=== PATIENT | male | born 1955 | race Caucasian/White ===

== ENCOUNTER 2021-08-22 15:02 | Emergency (ER) | payer MEDICARE, BC, SELFPAY ==
[2021-08-22 15:03] VITALS: BP 126/62; PULSE 78; RESP 16; TEMP 37.6; O2SAT 94; BMI 25.7
--- NOTE | 2021-08-22 15:29 | RAD_ITS ---
STUDY: X-RAY CHEST REASON FOR EXAM: Male, 66 years old. SOB TECHNIQUE: Single AP portable view of the chest. COMPARISON: Comparison is made with prior study dated 04/08/2017. FINDINGS: Focal left lower lobe infiltrate. There is no demonstrated pleural abnormality. Normal size heart. Normal mediastinum and tiffanie. Normal visualized pulmonary arteries. Normal visualized aortic arch and descending thoracic aorta. Normal visualized thoracic spine. Prior rotator cuff surgery of the right shoulder. There is no demonstrated abnormality of the visualized soft tissue structures of the upper abdomen. RAD/Chest 1 View (Portable) IMPRESSION: Left lower lobe infiltrate. Electronically Signed: Geraldo Whatley MD at 15:46 EDT , Service support ,
--- NOTE | 2021-08-22 15:29 | EKG12_ITS ---
Test Reason : SOB Blood Pressure : / mmHG Vent. Rate : 060 BPM Atrial Rate : 060 BPM P-R Int : 168 ms QRS Dur : 080 ms QT Int : 358 ms P-R-T Axes : 024 019 007 degrees QTc Int : 358 ms Poor data quality, interpretation may be adversely affected Normal sinus rhythm Septal infarct , age undetermined Abnormal ECG Confirmed by SELAM FUNG, ABRAHAM ([id number]), metropolitan editor OMERO FARIAS ([id number]) on 08/26/2021 9:23:02 AM Referred By: JESSENIA Confirmed By:ABRAHAM DOSS MD
[2021-08-22 16:20] VITALS: O2SAT 97
[2021-08-22 16:22] VITALS: RESP 28; O2SAT 97
--- NOTE | 2021-08-22 16:23 | CT_ITS ---
STUDY: CTA CHEST REASON FOR EXAM: Male, 66 years old. Substernal chest pain and shortness of breath RADIATION DOSAGE (If Supplied By Facility): CTDIvol = ( 13.83 ) mGy, DLP = ( 382.50 ) mGycm TECHNIQUE: The examination was performed with the intravenous administration of . Post-processing of the angiographic images was performed, with multiplanar reformation and 3D reconstruction. Individualized dose optimization techniques were used for this CT. COMPARISON: None. FINDINGS: Normal enhancement of the main pulmonary artery and right and left pulmonary arteries. Normal enhancement of the bilateral peripheral pulmonary arteries. There is no demonstrated pulmonary embolism. Normal thoracic aorta and visualized great vessels. There is no demonstrated aortic dissection. Normal heart and pericardium. Subcentimeter mediastinal and perihilar lymph nodes. There is peribronchial thickening. The lungs are well expanded. Diffuse interstitial and airspace opacifications in both lung renae, most notably the left lower lobe. Findings suggest Covid pneumonia, pneumonitis or CHF. Normal pleura. Normal chest wall structures. Normal osseous structures. Normal visualized upper abdomen. CT/CTA Chest W/WO Contrast IMPRESSION: No demonstrated PE, or thoracic aortic aneurysm or dissection Diffuse interstitial and airspace opacifications in both lung renae particularly the left lower lobe, differential as described above. Follow-up recommended to assure resolution Subcentimeter in short axis dimension mediastinal and perihilar lymph nodes Electronically Signed: Gilmar Tobar MD at 18:23 EDT , Service support ,
[2021-08-22 16:44] LABS: Absolute Lymphocyte Count 1.24 X10^3/uL (0.83-4.51); Absolute Neutrophil Count 1.7 X10^3/uL (2.0-7.7); Basophil# 0.01 X10^3/uL; Basophil% 0.3 % (0-1); Hematocrit 48.5 % (40-54); Hemoglobin 16.3 g/dL (13.0-16.5); Lymphocyte # 1.24 X10^3/ul (0.83-4.51); Lymphocyte % 37.7 % (19-41); Mean Corp Hgb Conc 33.6 g/dL (32-36); Mean Corpuscular Volume 89.2 fL (80-94); Mean Platelet Vol. 11.2 fl (6.2-12.0); Monocyte# 0.34 X10^3/uL; Monocyte% 10.3 % (0-10); NRBC Flagged by Analyzer 0 % (0-5); Neutrophil # 1.69 X10^3/uL (2.7-7.7); Neutrophil % 51.4 % (47-70); Platelet Count 112 K/mm3 (150-450); RBC Distribution Width CV 12.9 % (11.6-14.6); RBC Distribution Width SD 42.4 fl (35.1-43.9); Red Blood Count 5.44 M/mm3 (4.6-6.2); White Blood Count 3.3 K/mm3 (4.4-11.0)
[2021-08-22 16:59] LABS: Lactic Acid 1.1 mmol/L (0.4-1.9)
[2021-08-22 17:05] LABS: ALB/GLOB Ratio 0.9 RATIO (0.9-2.4); AST(SGOT) 24 U/L (15-37); Alanine Aminotransfer ALT/SGPT 23 U/L (16-61); Albumin, Serum 3.2 g/dL (3.2-5.0); Alkaline Phosphatase 75 U/L (45-117); Anion Gap 7 (5-15); BUN 15 mg/dL (7-18); BUN/Creat Ratio 11.3 RATIO (10-20); Calcium,Total 8.2 mg/dL (8.5-10.1); Chloride 100 mmol/L (98-107); Creatinine, Serum 1.33 mg/dL (0.70-1.30); EST Glomerular Filtration Rate 57 mL/min (>60); Est Glom Filt Rate - Afr Amer 69 mL/min (>60); Estimated Creatinine Clearance 56.62 ml/min; Globulin 3.4 g/dL (2.2-4.2); Glucose 204 mg/dL (74-106); Potassium 3.9 mmol/L (3.5-5.1); Protein, Total 6.6 g/dL (6.4-8.2); Sodium Level 135 mmol/L (136-145); Troponin-I HS 9 pg/mL (3.0-78.0)
[2021-08-22] MEDS: Acetaminophen 500 MG Tablet 1000 MG PO (17:16)
[2021-08-22] MEDS: dexAMETHasone 10 MG/ML Vial IV (17:16)
[2021-08-22] MEDS: 0.9% Normal Saline 1,000 ML 999 ML IV (17:45)
[2021-08-22 18:06] LABS: International Normalized Ratio 1.1; Prothrombin Time (Protime)PT. 13.3 SECONDS (11.7-14.9)
[2021-08-22 18:07] LABS: Partial Thromboplast Time 30.9 Seconds (24.1-36.2)
[2021-08-22 18:41] LABS: Bedside Glucose 189 mg/dL (70-110)
[2021-08-22 18:51] VITALS: BP 124/54; PULSE 56; RESP 25; O2SAT 93
[2021-08-22 20:13] VITALS: BP 117/79; RESP 64; TEMP 37; O2SAT 96
[2021-08-22 20:14] VITALS: O2SAT 96
--- NOTE | 2021-08-22 20:30 | EX.ED.DYSGE1 ---
HPI History of Present Illness Chief Complaint: Shortness of Breath Narrative Narrative: Patient is 66-year-old male with type 1 diabetes who states over the last 5 to 7 days he has had increased shortness of breath with fatigue and cough. He states that he went and had an outpatient Covid test 2 days ago and it was positive. He reports that today his oxygen level was reading in the mid 80s at home and with concern for worsening symptoms was brought in for evaluation [facility] Medical History COVID-19 Home Medications atorvastatin 40 mg PO QHS 04/08/17 [History Last Taken Unknown] enalapril maleate 5 mg PO DAILY 04/08/17 [History Last Taken Unknown] insulin lispro [Humalog] 30 units SQ DAILY 04/08/17 [History Last Taken Unknown] albuterol sulfate [Ventolin HFA] 1 - 2 puff INHALATION Q4H PRN PRN #1 device 08/22/21 [Rx Last Taken Unknown] dexamethasone [Decadron] 6 mg PO DAILY 10 Days #10 tab 08/22/21 [Rx Last Taken Unknown] promethazine-codeine 5 ml PO Q6H PRN 7 Days #140 ml 08/22/21 [Rx Last Taken Unknown] Allergy/AdvReac Type Severity Reaction Status Date / Time No Known Allergies Allergy Verified 04/08/17 14:04 Social History Smoking Status: Former smoker ROS [facility] ED Constitutional Constitutional ED: Reports chills and fever(s) ENT ENT ED: Reports sore throat Cardiovascular Cardiovascular: Denies chest pain Respiratory/Chest Respiratory/Chest: Reports cough and dyspnea Gastrointestinal Gastrointestinal: Reports nausea; Denies abdominal pain, diarrhea or vomiting Genitourinary Genitourinary ED: Denies dysuria Musculoskeletal Musculoskeletal: Reports myalgias Integumentary Denies rash Neurologic Neurologic: Denies headache(s) Hematologic/Lymphatic Hematologic/Lymphatic: Denies easy bleeding or easy bruising EXAM Physical Exam Const Vital Signs: 08/22/21 15:03 08/22/21 16:20 08/22/21 16:22 Temperature 99.6 F H Temperature Source Temporal Pulse Rate 78 Respiratory Rate 16 28 H Blood Pressure 126/62 H Blood Pressure Mean 83 Pulse Ox 94 97 97 Oxygen Delivery Method Room Air Room Air Room Air 08/22/21 18:51 08/22/21 20:13 Temperature 98.6 F Temperature Source Temporal Pulse Rate 56 L Respiratory Rate 25 H 64 H Blood Pressure 124/54 H 117/79 Blood Pressure Mean 77 91 Pulse Ox 93 96 Oxygen Delivery Method Room Air Room Air Positive well nourished and well developed General Appearance ED: well developed HEENT Reports dry mucous membranes HEENT Narrative: No tongue or lip swelling no airway edema or compromise Mouth ED: Yes dry mucous membranes Mouth: dry mucous membranes Eyes PERRL and EOMs intact bilaterally Neck supple and no JVD Neck Narrative: Positive anterior cervical lymphadenopathy Chest Wall palpation of chest normal Resp Resp Narrative: Breath sounds are diminished throughout with diffuse expiratory wheeze with slight tachypnea noted Cardio regular rate and regular rhythm GI normal to inspection, nondistended, normoactive bowel sounds, non-tender, non-distended and no masses Auscultation: normoactive bowel sounds Palpation: soft Extremity normal to inspection Extremity Narrative: No asymmetric edema no pitting edema negative Homans' sign bilaterally Neuro oriented x3 and CN's II-XII intact bilaterally Sensorium / Orientation: alert Motor Exam: strength 5/5 throughout Psych mental status grossly normal Skin no rashes or lesions noted MDM MDM MDM Narrative Medical decision making narrative: Patient presented to the ER with diminished breath sounds with wheeze as well as low-grade fever consistent with his recent Covid diagnosis. He had mild increased work of breathing but was satting in the mid 90s on room air. With his recent Covid diagnosis as well as travel from [place] I did elect to perform a CTA. CT revealed no PE or dissection but did show Covid pneumonia. Blood work revealed no signs of heart damage or other clinically significant change. Patient was ambulated in the ER and his pulse ox dropped no lower than 92%. Therefore at this time he does not have cardiac damage or need for supplemental oxygen and can be discharged and he will receive monoclonal antibody treatment which has been already set up by his family doctor. Lab Data Attestation: I reviewed the patient's lab results. Labs: Laboratory Results - last 24 hr 08/22/21 08/22/21 08/22/21 16:20 16:20 16:20 WBC 3.3 L RBC 5.44 Hgb 16.3 Hct 48.5 MCV 89.2 MCH 30.0 MCHC 33.6 RDW Std Deviation 42.4 RDW Coeff of Ibeth 12.9 Plt Count 112 L MPV 11.2 Immature Gran % (Auto) 0.300 Neut % (Auto) 51.4 Lymph % (Auto) 37.7 [place] % (Auto) 10.3 H Eos % (Auto) 0.0 Baso % (Auto) 0.3 Absolute Neuts (auto) 1.7 L Absolute Lymphs (auto) 1.24 Nucleated RBC % 0 PT INR APTT Sodium 135 L Potassium 3.9 Chloride 100 Carbon Dioxide 28.0 Anion Gap 7 BUN 15 Creatinine 1.33 H Estim Creat Clear Calc 56.62 Est GFR (MDRD) Af Amer 69 Est GFR (MDRD) Non-Af 57 L BUN/Creatinine Ratio 11.3 Glucose 204 H Lactic Acid 1.1 Calcium 8.2 L Magnesium 2.0 Total Bilirubin 0.80 AST 24 ALT 23 Alkaline Phosphatase 75 Troponin I High Sens 9 Total Protein 6.6 Albumin 3.2 Globulin 3.4 Albumin/Globulin Ratio 0.9 Acetone Level POC Glucose 08/22/21 08/22/21 08/22/21 16:20 17:43 18:35 WBC RBC Hgb Hct MCV MCH MCHC RDW Std Deviation RDW Coeff of Ibeth Plt Count MPV Immature Gran % (Auto) Neut % (Auto) Lymph % (Auto) [place] % (Auto) Eos % (Auto) Baso % (Auto) Absolute Neuts (auto) Absolute Lymphs (auto) Nucleated RBC % PT 13.3 INR 1.1 APTT 30.9 Sodium Potassium Chloride Carbon Dioxide Anion Gap BUN Creatinine Estim Creat Clear Calc Est GFR (MDRD) Af Amer Est GFR (MDRD) Non-Af BUN/Creatinine Ratio Glucose Lactic Acid Calcium Magnesium Total Bilirubin AST ALT Alkaline Phosphatase Troponin I High Sens Total Protein Albumin Globulin Albumin/Globulin Ratio Acetone Level NEGATIVE POC Glucose 189 H Radiography Diagnostic Testing: Clinical Impression(s) from Imaging Studies Chest X-Ray 08/22/21 15:29 IMPRESSION: Left lower lobe infiltrate. Electronically Signed: Geraldo Whatley MD at 15:46 EDT , Service support , Chest CTA 08/22/21 16:23 IMPRESSION: No demonstrated PE, or thoracic aortic aneurysm or dissection Diffuse interstitial and airspace opacifications in both lung renae particularly the left lower lobe, differential as described above. Follow-up recommended to assure resolution Subcentimeter in short axis dimension mediastinal and perihilar lymph nodes Electronically Signed: Gilmar Tobar MD at 18:23 EDT , Service support , Discharge Plan Triage Chief Complaint: Shortness of Breath ED Provider: Mark Aviles Dx/Rx/DC Orders Clinical Impression: Pneumonia due to 2019 novel coronavirus Instructions: Coronavirus Disease 2019 (COVID-19): Caring for Yourself or Others Prescriptions: New dexamethasone [Decadron] 6 mg tablet 6 mg PO DAILY 10 Days Qty: 10 RF: 0 albuterol sulfate [Ventolin HFA] 90 mcg/actuation HFA aerosol inhaler 1 - 2 puff inhalation Q4H PRN PRN (Reason: Wheezing) Qty: 1 RF: 0 promethazine-codeine 6.25-10 mg/5 mL syrup 5 ml PO Q6H PRN (Reason: cough) 7 Days Qty: 140 RF: 0 No Action atorvastatin 40 MG tablet 40 mg PO QHS RF: 0 enalapril maleate 5 MG tablet 5 mg PO DAILY RF: 0 insulin lispro [Humalog U-100 Insulin] 100 UNIT/ML solution 30 units SQ DAILY RF: 0 Primary Care Provider: Johny Latham Referrals: Johny Latham MD [Primary Care Provider] - Disposition Disposition: Home, Self Care Discharge Date/Time: 08/22/21 20:39
== END 2021-08-22 20:39 | disposition home or self-care (01) ==
PROVIDERS: Emergency Medicine; Emergency Provider Emergency Medicine; PCP Family Medicine
DX: U07.1 COVID-19 (principal); J12.82 Pneumonia due to coronavirus disease 2019; E10.8 Type 1 diabetes mellitus with unspecified complications; Z87.891 Personal history of nicotine dependence
CPT/HCPCS: 71045; 71275; 80053; 82009; 82962; 83605; 83735; 84484; 85025; 85610; 85730; 87040; 93005; 94760; 96361; 96374; 99285; J7030; Q9967; A4216

== ENCOUNTER 2021-08-25 16:12 | Emergency (ER) | payer MEDICARE, BC, SELFPAY ==
[2021-08-25 16:15] VITALS: BP 127/51; PULSE 58; RESP 14; TEMP 36.9; O2SAT 95; BMI 25.2
--- NOTE | 2021-08-25 17:59 | RAD_ITS ---
STUDY: X-RAY CHEST REASON FOR EXAM: Male, 66 years old. hiccups, covid TECHNIQUE: Single AP portable view of the chest. COMPARISON: 08/22/2021. FINDINGS: No pleural effusion. Mild residual opacity in the left lower lobe, significantly improved compared to the prior study. Normal size heart. Normal mediastinum and tiffanie. Normal visualized pulmonary arteries. Normal visualized aortic arch and descending thoracic aorta. Normal visualized thoracic spine. Normal visualized ribs, clavicles, and shoulders. There is no demonstrated abnormality of the visualized soft tissue structures of the upper abdomen. RAD/Chest 1 View (Portable) IMPRESSION: Near-complete resolution of previously noted left lower lobe pneumonia. Electronically Signed: Yolie Acosta MD at 19:01 EDT Tel , Service support ,
--- NOTE | 2021-08-25 18:01 | EDS_ITS ---
HPI History of Present Illness Chief Complaint: General Illness Detail of Chief Complaint: hiccups Informant: patient Onset/Context/Timing Onset: Days (3) Context: Sudden Onset Timing: Continuous Quality: hiccups Current Severity: Severe Maximum Severity: Severe Worsened by: nothing Relieved by: nothing Associated Symptoms Associated Symptoms: some heartburn in epigastrium. no dyspnea or CP. Associated Symptoms ED: cough Narrative Narrative: Patient has had symptoms of COVID-19 for about 8 days now, he tested positive at urgent care. He has been feeling malaised and achy, cough, some fevers, no dyspnea or chest pain. However he started hiccups 3 days ago and they will not stop and he is unable to sleep well. That is his main complaint. He states he was referred to the monoclonal antibody infusion center since he is a type I diabetic, and he states he has a virtual appointment tomorrow regarding it, which will be day 9. [facility] Medical History (Updated 08/25/21 @ 21:[address] Colin Healy MD) COVID-19 Type 1 diabetes mellitus Home Medications atorvastatin 40 mg PO QHS 04/08/17 [History Last Taken Unknown] enalapril maleate 5 mg PO DAILY 04/08/17 [History Last Taken Unknown] insulin lispro [Humalog] 30 units SQ DAILY 04/08/17 [History Last Taken Unknown] albuterol sulfate [Ventolin HFA] 1 - 2 puff INHALATION Q4H PRN PRN #1 device 08/22/21 [Rx Last Taken Unknown] dexamethasone [Decadron] 6 mg PO DAILY 10 Days #10 tab 08/22/21 [Rx Last Taken Unknown] promethazine-codeine 5 ml PO Q6H PRN 7 Days #140 ml 08/22/21 [Rx Last Taken Unknown] chlorpromazine 25 - 50 mg PO TID #16 tab 08/25/21 [Rx Last Taken Unknown] Allergy/AdvReac Type Severity Reaction Status Date / Time No Known Allergies Allergy Verified 08/25/21 18:14 Social History Smoking Status: Former smoker ROS ROS ED Constitutional Constitutional ED: Reports body ache(s), fatigue, fever(s) and malaise Eyes Eyes: Denies change in vision or diplopia ENT ENT ED: Denies rhinorrhea or sore throat Cardiovascular Cardiovascular: Denies chest pain or palpitations Respiratory/Chest Respiratory/Chest: Reports cough; Denies dyspnea or dyspnea on exertion Gastrointestinal Gastrointestinal: Reports as per HPI and abdominal pain; Denies nausea or vomiting Genitourinary Genitourinary ED: Denies dysuria or hematuria Musculoskeletal Musculoskeletal: Denies back pain or neck pain Integumentary Denies abscess or rash Neurologic Neurologic: Denies paresthesias or weakness Psychiatric Psychiatric: Denies anxiety or suicidal thoughts EXAM Physical Exam Const Vital Signs: 08/25/21 16:15 08/25/21 18:23 08/25/21 19:31 Temperature 98.4 F 100.3 F H Temperature Source Temporal Oral Pulse Rate 58 L 68 Respiratory Rate 14 18 Respiratory Effort Normal Respiratory Pattern Normal Blood Pressure 127/51 H 148/54 H Blood Pressure Mean 76 85 Pulse Ox 95 94 Oxygen Delivery Method Room Air Room Air Positive well nourished and well developed Constitutional Narrative: Well-appearing, no distress. Frequent hiccups. Able to converse normally. General Appearance ED: well developed and NAD HEENT Reports moist mucous membranes normocephalic and atraumatic Eyes PERRL and EOMs intact bilaterally Neck full ROM and supple Resp normal respiratory effort and clear to auscultation bilaterally Cardio regular rate, regular rhythm and no murmurs Rate: Negative for tachycardic GI non-distended GI Narrative: Minor epigastric tenderness with palpation, otherwise benign abdomen Auscultation: normoactive bowel sounds Palpation: soft Back/Spine no CVA tenderness General Back: other FROM Extremity normal to inspection and no calf tenderness General Extremety ED: Negative for edema, pulses abnormal or tenderness General Extremity: Negative for edema or pulses abnormal Neuro oriented x3, CN's II-XII intact bilaterally and no sensory deficits noted Sensorium / Orientation: awake and alert Motor Exam: strength 5/5 throughout Skin no rashes or lesions noted and no wounds MDM MDM MDM Narrative Medical decision making narrative: Patient had CT angiography of the chest 3 days ago. It showed no pulmonary embolus, nothing on the abdominal side of the diaphragm that would explain his hiccups, but he did have diffuse interstitial and airspace opacifications in both lungs particularly the left lower lobe. I obtained a chest x-ray, and as below it shows near complete resolution of the left lower lobe airspace disease. I suspect this which is distal near the diaphragm is probably causing his hiccups. I do not think he needs any other work-up right now. He developed a fever while he was here, and we treated that with Tylenol. He was given Thorazine 25 mg IM, it did not help his hiccups, I had nurses place an IV and give another 10 mg, he is unsure if it is helping but would like to leave. I do not think he needs to be admitted to the hospital his oxygenation is excellent, will give him a half milligram of IV Ativan and discharge him with oral Thorazine that he can use as needed. Lab Data Attestation: I reviewed the patient's lab results. Radiography Diagnostic Testing: Clinical Impression(s) from Imaging Studies Chest X-Ray 08/25/21 17:59 IMPRESSION: Near-complete resolution of previously noted left lower lobe pneumonia. Electronically Signed: Yolie Acosta MD at 19:01 EDT Tel , Service support , Discharge Plan Triage Chief Complaint: General Illness ED Provider: Colin Healy Dx/Rx/DC Orders Clinical Impression: Intractable hiccups, Pneumonia due to 2019 novel coronavirus Instructions: ED Hiccups Prescriptions: New chlorpromazine 25 mg tablet 25 - 50 mg PO TID Qty: 16 RF: 0 No Action atorvastatin 40 MG tablet 40 mg PO QHS RF: 0 enalapril maleate 5 MG tablet 5 mg PO DAILY RF: 0 insulin lispro [Humalog U-100 Insulin] 100 UNIT/ML solution 30 units SQ DAILY RF: 0 dexamethasone [Decadron] 6 mg tablet 6 mg PO DAILY 10 Days Qty: 10 RF: 0 albuterol sulfate [Ventolin HFA] 90 mcg/actuation HFA aerosol inhaler 1 - 2 puff inhalation Q4H PRN PRN (Reason: Wheezing) Qty: 1 RF: 0 promethazine-codeine 6.25-10 mg/5 mL syrup 5 ml PO Q6H PRN (Reason: cough) 7 Days Qty: 140 RF: 0 Primary Care Provider: Johny Latham Referrals: Johny Latham MD [Primary Care Provider] - 3-5 Days if not improving (And make sure you follow-up to get monoclonal antibody infusion therapy as soon as possible) Activity Restrictions/Additional Instructions: Closely watch your oxygen levels periodically with your pulse ox. If you stay below 90% for more than a minute or so, and/or you are feeling like your breathing is getting worse, return to the emergency department for further evaluation. Disposition Disposition: Home, Self Care
[2021-08-25] MEDS: ChlorproMAZINE 50 MG/2 ML Ampul 25 MG IM (18:15)
[2021-08-25 19:31] VITALS: BP 148/54; PULSE 68; RESP 18; TEMP 37.9; O2SAT 94
[2021-08-25] MEDS: ChlorproMAZINE 50 MG/2 ML Ampul 10 MG IV (20:49)
[2021-08-25] MEDS: Acetaminophen 500 MG Tablet 1000 MG PO (20:49)
[2021-08-25] MEDS: LORazepam 2 MG/ML Syringe 0.5 MG IV (21:51)
[2021-08-25 21:55] VITALS: PULSE 88; RESP 16; TEMP 37.7; O2SAT 95
== END 2021-08-25 21:50 | disposition home or self-care (01) ==
PROVIDERS: Emergency Provider Emergency Medicine; PCP Family Medicine
DX: R06.6 Hiccough (principal); U07.1 COVID-19; J12.82 Pneumonia due to coronavirus disease 2019; Z87.891 Personal history of nicotine dependence; E10.9 Type 1 diabetes mellitus without complications
CPT/HCPCS: 71045; 99284

== ENCOUNTER 2021-08-26 08:38 | Emergency (ER) | payer MEDICARE, BC, SELFPAY ==
[2021-08-26 08:45] VITALS: BP 110/49; PULSE 73; RESP 32; TEMP 37.6; O2SAT 89; BMI 24.5
[2021-08-26 08:49] VITALS: O2SAT 91
--- NOTE | 2021-08-26 09:23 | EKG12_ITS ---
Test Reason : WEAKNESS Blood Pressure : / mmHG Vent. Rate : 063 BPM Atrial Rate : 063 BPM P-R Int : 152 ms QRS Dur : 082 ms QT Int : 406 ms P-R-T Axes : 029 005 012 degrees QTc Int : 415 ms Normal sinus rhythm Low voltage QRS (Limb Leads) Nonspecific T wave abnormality Abnormal ECG Confirmed by SELAM FUNG, ABRAHAM ([id number]), editor publications OMERO FARIAS ([id number]) on 08/28/2021 8:45:40 AM Referred By: LILLIAM Confirmed By:ABRAHAM DOSS MD
--- NOTE | 2021-08-26 09:23 | RAD_ITS ---
STUDY: X-RAY CHEST REASON FOR EXAM: Male, 66 years old. covid TECHNIQUE: Single AP portable view of the chest. COMPARISON: Comparison is made with prior study dated 08/25/2021. FINDINGS: EKG electrodes are seen. Persistent bibasilar infiltrates worse in the left lower lobe. These have progressed as compared to prior study. There is no demonstrated pleural abnormality. Normal size heart. Normal mediastinum and tiffanie. Normal visualized pulmonary arteries. Normal visualized aortic arch and descending thoracic aorta. Normal visualized thoracic spine. Metallic pins are seen overlying the right humeral head most likely secondary to rotator cuff surgery. There is no demonstrated abnormality of the visualized soft tissue structures of the upper abdomen. RAD/Chest 1 View (Portable) IMPRESSION: Progressive bibasilar pulmonary infiltrates worse in the left lung base. Electronically Signed: Geraldo Whatley MD at 9:53 EDT , Service support ,
--- NOTE | 2021-08-26 09:25 | EDS_ITS ---
HPI History of Present Illness Chief Complaint: Weakness Informant: patient Onset/Context/Timing Onset: Days Context: Gradual Onset Timing: Continuous Current Severity: Mild Maximum Severity: Mild Narrative Narrative: 66-year-old male states he is tested positive for Covid. He is unvaccinated. Says just feels generally weak. Intermittent fever chills. He does have a history of diabetes. He denies vomiting or diarrhea. He denies any significant cough currently or shortness of breath. Prior similar symptoms: Yes Recent Illness/Hospitalization: No PFSH PFS Medical History COVID-19 Type 1 diabetes mellitus Home Medications atorvastatin 40 mg PO QHS 04/08/17 [History Last Taken Unknown] enalapril maleate 5 mg PO DAILY 04/08/17 [History Last Taken Unknown] insulin lispro [Humalog] 30 units SQ DAILY 04/08/17 [History Last Taken Unknown] albuterol sulfate [Ventolin HFA] 1 - 2 puff INHALATION Q4H PRN PRN #1 device 08/22/21 [Rx Last Taken Unknown] dexamethasone [Decadron] 6 mg PO DAILY 10 Days #10 tab 08/22/21 [Rx Last Taken Unknown] promethazine-codeine 5 ml PO Q6H PRN 7 Days #140 ml 08/22/21 [Rx Last Taken Unknown] chlorpromazine 25 - 50 mg PO TID #16 tab 08/25/21 [Rx Last Taken Unknown] Allergy/AdvReac Type Severity Reaction Status Date / Time No Known Allergies Allergy Verified 08/26/21 08:44 Social History Smoking Status: Former smoker ROS ROS ED ROS Narrative Myalgias. Fevers. Generalized weakness. Review of Systems ROS Unobtainable: Denies due to encephalopathy Constitutional Constitutional ED: Reports fever(s) Eyes Eyes: Denies change in vision ENT ENT ED: Denies ear pain Cardiovascular Cardiovascular: Denies chest pain Respiratory/Chest Respiratory/Chest: Denies cough or dyspnea Gastrointestinal Gastrointestinal: Denies abdominal pain, diarrhea, nausea or vomiting Genitourinary Genitourinary ED: Denies dysuria Musculoskeletal Musculoskeletal: Reports myalgias Integumentary Denies rash Neurologic Neurologic: Denies headache(s) Psychiatric Psychiatric: Denies depression Endocrine Endocrinology: Denies polyuria Allergic/Immunologic Allergic/Immunologic ED: Denies urticaria EXAM Physical Exam Narrative Exam Narrative: 66-year-old male clinically does not look ill. Vital signs are stable his pulse ox is 89% on room air consistent with hypoxia. Temperature 996. HEENT exam mildly dry. Neck nontender no lymphadenopathy. Lungs clear to auscultation. Heart regular rhythm no murmur. Abdomen soft nontender. Moving all 4 extremities. Calves are nontender without edema. Neurologically is awake and alert with no focal motor deficits. Benign exam he is mildly hypoxic. Const Vital Signs: 08/26/21 08:45 08/26/21 08:48 08/26/21 08:49 Temperature 99.6 F H Temperature Source Oral Pulse Rate 73 Respiratory Rate 32 H Respiratory Effort Non-Labored Blood Pressure 110/49 L Blood Pressure Mean 69 Pulse Ox 89 91 Oxygen Delivery Method Room Air Nasal Cannula Oxygen Flow Rate (L/min) 2 08/26/21 10:55 08/26/21 11:37 08/26/21 11:43 Temperature Temperature Source Pulse Rate 56 L Respiratory Rate 23 H Respiratory Effort Blood Pressure 130/51 H Blood Pressure Mean 77 Pulse Ox 95 87 95 Oxygen Delivery Method Nasal Cannula Room Air Nasal Cannula Oxygen Flow Rate (L/min) 2 2 Positive well nourished and well developed; Negative for obese, cachectic, contractures or unkempt General Appearance ED: well developed and NAD; Negative for unkempt, cachectic, contractures, cyanotic, diaphoretic or pallor Nutritional Appearance: Negative for cachectic or obese HEENT Reports dry mucous membranes Negative for trauma Mouth ED: Yes dry mucous membranes Mouth: dry mucous membranes Eyes PERRL and EOMs intact bilaterally Neck no lymphadenopathy, supple and no JVD General: Negative for tenderness Chest Wall inspection of chest normal and palpation of chest normal Resp normal respiratory effort and clear to auscultation bilaterally Effort and Inspection: Negative for pain with movement Auscultation: Negative for rales, rhonchi or wheezes Cardio regular rate, regular rhythm, S1 normal heart sound, S2 normal heart sound and no murmurs GI normal to inspection, nondistended, normoactive bowel sounds, non-tender, non- distended and no masses Inspection: Negative for abdominal distention Auscultation: normoactive bowel sounds; Negative for hyperactive bowel sounds or hypoactive bowel sounds Palpation: soft; Negative for tender, guarding or rebound tenderness present Back/Spine no CVA tenderness General Back: Negative for CVA tenderness Extremity normal to inspection General Extremety ED: Negative for edema, tenderness or other findings General Extremity: Negative for edema or other findings Neuro oriented x3 and CN's II-XII intact bilaterally Sensorium / Orientation: alert; Negative for orientation impaired, lethargic or stuporous Motor Exam: strength 5/5 throughout Psych mental status grossly normal Appearance: Negative for unkempt Skin no rashes or lesions noted, no wounds and skin turgor normal General Skin Exam: Negative for jaundice or pallor MDM MDM MDM Narrative Medical decision making narrative: 66-year-old male Covid positive hypoxic complaint and generalized weakness. We treated with IV fluids and labs are being obtained. Also be given Decadron. Repeat exam patient is doing well at 11:55 PM. lithographic general worker talk to the patient and she set him up with home oxygen due to his hypoxia of 89%. Patient is already on Decadron. He knows to return if worse. I discussed his test results of both he and his prior to discharge. She was at bedside. Lab Data Attestation: I reviewed the patient's lab results. Lab results narrative: CBC shows a white count 14.1. Hemoglobin 13.7. Gap 6 BUN 28 creatinine 0.25. Glucose of 296. White count is normal Labs: Laboratory Results - last 24 hr 08/26/21 08/26/21 10:05 10:05 WBC 14.1 H RBC 4.45 L Hgb 13.7 Hct 39.6 L MCV 89.0 MCH 30.8 MCHC 34.6 RDW Std Deviation 42.1 RDW Coeff of Ibeth 12.9 Plt Count 182 MPV 10.6 Immature Gran % (Auto) 1.400 H Neut % (Auto) 90.3 H Lymph % (Auto) 3.3 L Scurry % (Auto) 4.9 Eos % (Auto) 0.0 Baso % (Auto) 0.1 Absolute Neuts (auto) 12.7 H Absolute Lymphs (auto) 0.46 L Nucleated RBC % 0 Differential Comment COMMENT Sodium 137 Potassium 3.7 Chloride 108 H Carbon Dioxide 23.0 Anion Gap 6 BUN 28 H Creatinine 1.25 Estim Creat Clear Calc 60.24 Est GFR (MDRD) Af Amer 74 Est GFR (MDRD) Non-Af 61 BUN/Creatinine Ratio 22.4 H Glucose 296 H Calcium 7.7 L Total Bilirubin 0.80 AST 19 ALT 20 Alkaline Phosphatase 64 Total Protein 5.4 L Albumin 2.3 L Globulin 3.1 Albumin/Globulin Ratio 0.7 L Radiography Chest X-Ray - ED: 1 View, Read by ED Physician, Read by Radiologist, Right Infiltrate and Left Infiltrate Diagnostic Testing: Clinical Impression(s) from Imaging Studies Chest X-Ray 08/26/21 09:23 IMPRESSION: Progressive bibasilar pulmonary infiltrates worse in the left lung base. Electronically Signed: Geraldo Whatley MD at 9:53 EDT , Service support , Rhythm Strip Rhythm Strip: Sinus Rhythm Rate: 63 Ectopy: None EKG Initial EKG: Attestation: I personally reviewed and interpreted this EKG as follows: Interpretation: Sinus Rhythm and No Acute Injury Pattern Comments: Normal sinus rhythm rate of 63 no acute signs of ME or ischemia. Discharge Plan Triage Chief Complaint: Weakness ED Provider: Robert Nicole Dx/Rx/DC Orders Clinical Impression: Fatigue, COVID-19, Hypoxia, Hyperglycemia due to type 2 diabetes mellitus Prescriptions: No Action atorvastatin 40 MG tablet 40 mg PO QHS RF: 0 enalapril maleate 5 MG tablet 5 mg PO DAILY RF: 0 insulin lispro [Humalog U-100 Insulin] 100 UNIT/ML solution 30 units SQ DAILY RF: 0 dexamethasone [Decadron] 6 mg tablet 6 mg PO DAILY 10 Days Qty: 10 RF: 0 albuterol sulfate [Ventolin HFA] 90 mcg/actuation HFA aerosol inhaler 1 - 2 puff inhalation Q4H PRN PRN (Reason: Wheezing) Qty: 1 RF: 0 promethazine-codeine 6.25-10 mg/5 mL syrup 5 ml PO Q6H PRN (Reason: cough) 7 Days Qty: 140 RF: 0 chlorpromazine 25 mg tablet 25 - 50 mg PO TID Qty: 16 RF: 0 Primary Care Provider: Johny Latham Referrals: Johny Latham MD [Primary Care Provider] - 3-5 Days Activity Restrictions/Additional Instructions: Daily Decadron which is a steroid which will help with inflammation in your lungs. Oxygen at home to help you with your breathing. Follow-up with your doctor. Return if worse. Disposition Disposition: Home, Self Care
[2021-08-26] MEDS: 0.9% Normal Saline 1,000 ML 999 ML IV (09:44)
[2021-08-26] MEDS: dexAMETHasone 10 MG/ML Vial IV (09:44)
[2021-08-26 10:25] LABS: Absolute Lymphocyte Count 0.46 X10^3/uL (0.83-4.51); Absolute Neutrophil Count 12.7 X10^3/uL (2.0-7.7); Basophil# 0.01 X10^3/uL; Basophil% 0.1 % (0-1); Hematocrit 39.6 % (40-54); Hemoglobin 13.7 g/dL (13.0-16.5); Lymphocyte # 0.46 X10^3/ul (0.83-4.51); Lymphocyte % 3.3 % (19-41); Mean Corp Hgb Conc 34.6 g/dL (32-36); Mean Corpuscular Hgb 30.8 pg (27.0-32.0); Mean Platelet Vol. 10.6 fl (6.2-12.0); Monocyte# 0.69 X10^3/uL; Monocyte% 4.9 % (0-10); NRBC Flagged by Analyzer 0 % (0-5); Neutrophil # 12.74 X10^3/uL (2.7-7.7); Neutrophil % 90.3 % (47-70); POSITIVE DIFFERENTIAL YES; Platelet Count 182 K/mm3 (150-450); RBC Distribution Width CV 12.9 % (11.6-14.6); RBC Distribution Width SD 42.1 fl (35.1-43.9); Red Blood Count 4.45 M/mm3 (4.6-6.2); White Blood Count 14.1 K/mm3 (4.4-11.0)
[2021-08-26 10:37] LABS: Differential Indicated SCAN CRITERIA MET
[2021-08-26 10:40] LABS: ALB/GLOB Ratio 0.7 RATIO (0.9-2.4); AST(SGOT) 19 U/L (15-37); Alanine Aminotransfer ALT/SGPT 20 U/L (16-61); Albumin, Serum 2.3 g/dL (3.2-5.0); Alkaline Phosphatase 64 U/L (45-117); Anion Gap 6 (5-15); BUN 28 mg/dL (7-18); BUN/Creat Ratio 22.4 RATIO (10-20); Calcium,Total 7.7 mg/dL (8.5-10.1); Chloride 108 mmol/L (98-107); Creatinine, Serum 1.25 mg/dL (0.70-1.30); EST Glomerular Filtration Rate 61 mL/min (>60); Est Glom Filt Rate - Afr Amer 74 mL/min (>60); Estimated Creatinine Clearance 60.24 ml/min; Globulin 3.1 g/dL (2.2-4.2); Glucose 296 mg/dL (74-106); Potassium 3.7 mmol/L (3.5-5.1); Protein, Total 5.4 g/dL (6.4-8.2); Sodium Level 137 mmol/L (136-145)
[2021-08-26 10:55] VITALS: BP 130/51; PULSE 56; RESP 23; O2SAT 95
[2021-08-26 11:37] VITALS: O2SAT 87
[2021-08-26 11:43] VITALS: O2SAT 95
--- NOTE | 2021-08-26 11:47 | CM.ED ---
KRISTY Note Reason for Consult: Home Oxygen Referral Source: MD WAGNER was advised patient is going home on home oxygen. Patient with exertion was 87%. KRISTY faxed referral for home oxygen to [facility] [place]. KRISTY called and left voice mail for Bianka at [facility] [place] advising her of home discharge. [facility] RN and completed documentation. RN will discharge patient home with home oxygen. Plan: Home Oxygen Carolynn SYED
[2021-08-26 12:46] VITALS: BP 126/62; PULSE 60; RESP 29; O2SAT 94
--- NOTE | 2021-08-27 16:14 | CASEMGMT ---
RNCM ER DC F/u Call Patient Covid positive, Dc'd from ER on home oxygen ([employer]) Called patient listed cell phone with no answer and VM did not correctly identify patient. Called patient's Rosangela with no answer. Nasra Gonzalez RNCM
--- NOTE | 2021-08-29 17:37 | CASEMGMT ---
[facility] COVID ED Follow-up: This RN YAZMIN attempted to contact pt via phone for follow-up. Nonidentified voicemail received. Nondescript message left requesting a return call. Cricket Mortensen RN CM
--- NOTE | 2021-09-01 11:12 | CASEMGMT ---
Addendum entered and electronically signed by Karen Mortensen RN 09/01/21 11:25: Noted pt to have DM and on decadron. Pt states he monitors his BS 4 times a day and has been adjusting his insulin accordingly. Cricket Mortensen RN CM Original Note: ANDREY ARCE ED COVID Home O2 Follow-up: This ANDREY ARCE received a voicemail message from pt who returned this ANDREY ARCE's previous phone call. Pt states he is feeling better. Pt reports to continue to wear his home O2 at 4l/min and his PO was 95% this morning on the O2. Pt states he has a follow-up appointment with his PCP Dr. Latham this afternoon. Pt denies any difficulty breathing and states his appetite is improving. Pt reports to be using his incentive spirometer and lying in the prone position a couple of times a day. PT states he does continue to feel tired. Pt questions when he would be able to have a tooth extracted as he is needing to take Tylenol frequently for the tooth pain. Pt unable to recall the exact date of his positive COVID test but states may have been 08/19. Recommended pt contact his dentist to determine when they would be able to see him for his tooth. Pt denies any further questions or concerns at this time. Cricket Mortensen RN CM
== END 2021-08-26 13:06 | disposition home or self-care (01) ==
PROVIDERS: Emergency Provider Emergency Medicine; PCP Family Medicine
DX: U07.1 COVID-19 (principal); R09.02 Hypoxemia; E10.65 Type 1 diabetes mellitus with hyperglycemia; R53.83 Other fatigue; Z87.891 Personal history of nicotine dependence; Z79.4 Long term (current) use of insulin; Z79.52 Long term (current) use of systemic steroids
CPT/HCPCS: 71045; 80053; 85025; 93005; 99285; A4216

== ENCOUNTER → 2022-04-09 | Outpatient (CLI) | payer MEDICARE, BC, SELFPAY ==
[2022-04-09 09:57] LABS: Erythrocyte Sedimentation Rate 1 mm/hr (0-20)
[2022-04-09 10:02] LABS: Absolute Lymphocyte Count 1.54 X10^3/uL (0.83-4.51); Absolute Neutrophil Count 2.2 X10^3/uL (2.0-7.7); Basophil# 0.04 X10^3/uL; Basophil% 0.9 % (0-1); Eosinophil# 0.11 X10^3/uL; Eosinophils% 2.5 % (0-5); Hematocrit 44.7 % (40-54); Hemoglobin 15.3 g/dL (13.0-16.5); Lymphocyte # 1.54 X10^3/ul (0.83-4.51); Lymphocyte % 35.2 % (19-41); Mean Corp Hgb Conc 34.2 g/dL (32-36); Mean Corpuscular Hgb 31.2 pg (27.0-32.0); Mean Platelet Vol. 10.4 fl (6.2-12.0); Monocyte% 11.4 % (0-10); NRBC Flagged by Analyzer 0 % (0-5); Neutrophil # 2.17 X10^3/uL (2.7-7.7); Neutrophil % 49.8 % (47-70); Platelet Count 191 K/mm3 (150-450); RBC Distribution Width CV 12.7 % (11.6-14.6); RBC Distribution Width SD 41.9 fl (35.1-43.9); Red Blood Count 4.91 M/mm3 (4.6-6.2); White Blood Count 4.4 K/mm3 (4.4-11.0)
[2022-04-09 10:10] LABS: Vitamin B12 448 pg/mL (211-911)
[2022-04-09 10:24] LABS: ALB/GLOB Ratio 1.3 RATIO (0.9-2.4); AST(SGOT) 22 U/L (15-37); Alanine Aminotransfer ALT/SGPT 34 U/L (16-61); Albumin, Serum 3.5 g/dL (3.2-5.0); Alkaline Phosphatase 69 U/L (45-117); Anion Gap 6 (5-15); BUN 14 mg/dL (7-18); CPK Total, Creatine Kinase 205 U/L (39-308); Calcium,Total 8.8 mg/dL (8.5-10.1); Chloride 111 mmol/L (98-107); Creatinine, Serum 0.94 mg/dL (0.70-1.30); EST Glomerular Filtration Rate 85 mL/min (>60); Est Glom Filt Rate - Afr Amer 103 mL/min (>60); Globulin 2.7 g/dL (2.2-4.2); Glucose 77 mg/dL (74-106); Magnesium 1.9 mg/dL (1.6-2.6); Potassium 3.6 mmol/L (3.5-5.1); Protein, Total 6.2 g/dL (6.4-8.2); Sodium Level 143 mmol/L (136-145); Thyroid Stim Hormone (TSH) 1.17 uIU/mL (0.358-3.74)
[2022-04-12 16:56] LABS: Vitamin D 1,25-Dihydroxy 45.3 pg/mL (24.8-81.5)
[2022-04-13 16:23] LABS: Aldolase 6.3 U/L (3.3-10.3); Free Kappa Light Chains 12.2 mg/L (3.3-19.4); Free Lambda Light Chains 11.4 mg/L (5.7-26.3); Vitamin B1, Thiamine 135.1 nmol/L (66.5-200.0)
[2022-04-14 07:45] LABS: Myoglobin, Serum 49 ng/mL (28-72)
== END | disposition home or self-care (01) ==
LOC: MTLAB 07:02
PROVIDERS: PCP Family Medicine; Referring Provider Psychiatry & Neurology Neurology; Visit Provider Psychiatry & Neurology Neurology
DX: R53.83 Other fatigue (principal); G62.9 Polyneuropathy, unspecified
CPT/HCPCS: 36415; 80053; 82085; 82550; 82607; 82652; 82746; 83735; 83874; 83883; 84425; 84443; 85025; 85652

== ENCOUNTER → 2022-06-03 | Outpatient (CLI) | payer MEDICARE, BC, SELFPAY ==
--- NOTE | 2022-06-03 09:09 | NEURO ---
NCS and/or EMG Patient Report Ordering Doctor: Casa Curry DATE OF SERVICE: 06/03/22 Paco presents for electrodiagnostic testing of the right upper limb. He reports numbness and tingling in the right hand. Electrodiagnostic findings: Right median motor nerve demonstrates prolonged distal latency with normal amplitude and reduced conduction velocity. Prolonged right median sensory latency at the wrist. Right ulnar motor nerve demonstrates normal distal latency and amplitude with an approximately 25% drop in conduction velocity across the elbow. Prolonged median and ulnar F waves are noted. On needle EMG, all muscles tested in the right upper limb showed no evidence of denervation with normal motor unit action potentials. Electrodiagnostic impression: This is an abnormal study in the right upper limb 1. Electrodiagnostic findings demonstrate right-sided median mononeuropathy. This is consistent with a moderate right carpal tunnel syndrome. 2. Electrodiagnostic findings demonstrate right-sided ulnar neuropathy, consistent with a mild to moderate right cubital tunnel syndrome. 3. No electrodiagnostic evidence is noted for cervical radiculopathy.
== END | disposition home or self-care (01) ==
LOC: PSN 08:10
PROVIDERS: PCP Family Medicine; Referring Provider Psychiatry & Neurology Neurology; Visit Provider Psychiatry & Neurology Neurology
DX: G58.9 Mononeuropathy, unspecified (principal); E10.65 Type 1 diabetes mellitus with hyperglycemia; G56.21 Lesion of ulnar nerve, right upper limb; R53.83 Other fatigue; G62.9 Polyneuropathy, unspecified
CPT/HCPCS: 95886; 95910

== ENCOUNTER 2022-07-01 12:10 | Outpatient (CLI) | payer MEDICARE, BC, SELFPAY ==
--- NOTE | 2022-07-01 14:27 | NEURO ---
NCS and/or EMG Patient Report Ordering Doctor: Casa Curry DATE OF SERVICE: 07/01/22 Paco presents for electrodiagnostic testing of the lower limbs. He reports weakness in both legs. He denies numbness or tingling. Electrodiagnostic findings: Right peroneal motor nerve demonstrates prolonged latency with reduced amplitude and reduced conduction velocity. Left peroneal nerve motor nerve demonstrates prolonged distal latency and reduced amplitude. Tibial conduction velocities are decreased bilaterally. Absent right sural response. Prolonged left sural latency. Absent superficial peroneal response bilaterally. Prolonged H reflex bilaterally. Prolonged right tibial and left tibial H F waves. Absent right peroneal and left peroneal F waves. On needle EMG, motor units of increased amplitude and duration noted bilaterally in the tibialis anterior and gastrocnemius. Electrodiagnostic impression: This is an abnormal study in the lower limbs 1. Electrodiagnostic findings suggestive of peripheral polyneuropathy, with motor and sensory nerve involvement. 2. There is no electrodiagnostic evidence for myopathy. 3. There is no electrodiagnostic evidence for lumbosacral radiculopathy.
== END 2022-07-01 23:59 | disposition home or self-care (01) ==
LOC: PSN 12:11
PROVIDERS: PCP Family Medicine; Referring Provider Psychiatry & Neurology Neurology; Visit Provider Psychiatry & Neurology Neurology
DX: G62.9 Polyneuropathy, unspecified (principal); R29.898 Other symptoms and signs involving the musculoskeletal system
CPT/HCPCS: 95886; 95912

== ENCOUNTER → 2022-07-06 | Outpatient (CLI) | payer MEDICARE, BC, SELFPAY ==
[2022-07-19 10:07] LABS: Testosterone, Free 11.12 ng/dL (5.00-21.00)
[2022-07-19 14:06] LABS: Testosterone, % Free 1.85 % (1.50-4.20); Testosterone, Total 601 ng/dL (264-916)
== END | disposition home or self-care (01) ==
LOC: MTLAB 08:52
PROVIDERS: PCP Family Medicine; Referring Provider Psychiatry & Neurology Neurology; Visit Provider Psychiatry & Neurology Neurology
DX: R53.83 Other fatigue (principal)
CPT/HCPCS: 36415; 84402; 84403

== ENCOUNTER → 2023-03-24 | Outpatient (CLI) | payer MEDICARE, BC, SELFPAY ==
[2023-03-24 15:53] LABS: Hemoglobin A1c 6.6 % (3.8-5.6)
== END | disposition home or self-care (01) ==
LOC: LAB 14:30
PROVIDERS: PCP Family Medicine; Visit Provider Nurse Practitioner Family
DX: E10.65 Type 1 diabetes mellitus with hyperglycemia (principal)
CPT/HCPCS: 36415; 83036

== ENCOUNTER → 2023-07-01 | Outpatient (CLI) | payer MEDICARE, BC, SELFPAY ==
[2023-07-01 08:04] LABS: ALB/GLOB Ratio 1.2 RATIO (0.9-2.4); AST(SGOT) 12 U/L (15-37); Alanine Aminotransfer ALT/SGPT 24 U/L (16-61); Albumin, Serum 3.3 g/dL (3.2-5.0); Alkaline Phosphatase 76 U/L (45-117); Anion Gap 3 (5-15); BUN 24 mg/dL (7-18); BUN/Creat Ratio 28.2 RATIO (10-20); Calcium,Total 8.3 mg/dL (8.5-10.1); Chloride 112 mmol/L (98-107); Cholesterol 160 mg/dL (200); Creatinine, Serum 0.85 mg/dL (0.70-1.30); EST Glomerular Filtration Rate 95 mL/min (>60); Est Glom Filt Rate - Afr Amer 114 mL/min (>60); Globulin 2.7 g/dL (2.2-4.2); Glucose 151 mg/dL (74-106); High Density Lipoprotein 54 mg/dL; Sodium Level 143 mmol/L (136-145); Triglycerides 58 mg/dL; Very Low Density Lipoprotein 12 mg/dL (5-40)
[2023-07-01 08:44] LABS: Microalbumin,Random Urine 6.3 mg/L (NO RANGE EST.)
== END | disposition home or self-care (01) ==
PROVIDERS: PCP Family Medicine; Referring Provider Nurse Practitioner Family; Visit Provider Nurse Practitioner Family
DX: E10.65 Type 1 diabetes mellitus with hyperglycemia (principal)
CPT/HCPCS: 36415; 80053; 80061; 82043; 82570; 84443